=== PATIENT | female | born 1960 | race Caucasian/White ===

== ENCOUNTER 2020-05-05 20:25 | Emergency (ER) | payer OTHER ==
[~2020-05-05] VITALS: Ht 162.6 cm; Wt 62.6 kg
[2020-05-05 20:36] VITALS: BP 152/82
--- NOTE | 2020-05-05 20:37 | NUR ---
ED Nurse Note: pt walked into the Ed due to lower back pain 02/26. 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
--- NOTE | 2020-05-05 20:58 | Emergency Room Report ---
History of Present Illness General Chief Complaint: Lower Back Pain or Injury Source: Patient Present Illness HPI Disclaimer: Please note that this report is being documented using DRAGON technology. This can lead to erroneous entry secondary to incorrect interpretation by the dictating instrument. HPI: 59-year-old female no reported past medical history presents for low back pain. Patient states she has low back pain for the past couple of weeks after lifting a heavy patient off the floor. Pain is nonradiating. Worse with movement. No urinary complaints no abdominal pain. Allergies: Coded Allergies: No Known Allergies (Unverified , 05/05/20) COVID-19 Screening Contact w/high risk pt: No Experienced COVID-19 symptoms?: No COVID-19 Testing performed VARNISH MELTER: No Patient History Reviewed Nursing Documentation: PMH: Agreed; PSxH: Agreed Nursing Documentation-PMH Past Medical History: No Stated History Review of Systems All Other Systems: negative except mentioned in HPI Physical Exam Vital Signs Date Time Temp Pulse Resp B/P (MAP) Pulse Ox O2 Delivery O2 Flow Rate FiO2 05/05/20 20:35 98.2 94 20 166/89 (114) 99 Room Air Sp02 EP Interpretation: reviewed, normal General Appearance: well appearing, no apparent distress Head: normocephalic, atraumatic Eyes: bilateral eye PERRL, bilateral eye EOMI ENT: hearing grossly normal, moist mucus membranes Neck: full range of motion, supple Respiratory: lungs clear, normal breath sounds, no rhonchi, no respiratory distress, no retraction, no wheezing Cardiovascular #1: normal peripheral pulses, regular rate, rhythm, no murmur Gastrointestinal: non tender, soft, non-distended, no guarding Musculoskeletal: other - Low back tenderness noted no step-offs or deformity, lower extremity strength intact. Neurologic: alert, oriented x3, no focal defects Skin: normal color, warm/dry Medical Decision Making Diagnostic Impression: Primary Impression: Low back pain ER Course MDM: Differential diagnosis included but not limited to low back strain, lumbar radiculopathy, less likely spinal cord compression. Clinical gffrld-s-afv of the lumbar spine ordered and showed osteopenia without evidence of acute fracture or dislocation. Patient feeling improved after Toradol. Will discharge home with anti-inflammatories and Flexeril as needed. Return precautions given. Other X-Ray Diagnostic Results Other X-Ray Diagnostic Results : X-Ray ordered: Lumbosacral spine # of Views/Limited Vs Complete: 3 View Indication: Pain Interpretation: no dislocation, no fractures Impression: No acute disease Electronically Signed by: Anthony Prceiado MD Last Vital Signs Date Time Temp Pulse Resp B/P (MAP) Pulse Ox O2 Delivery O2 Flow Rate FiO2 05/05/20 20:35 98.2 94 20 166/89 (114) 99 Room Air Status: improved Disposition: HOME, SELF-CARE Condition: Improved Scripts Cyclobenzaprine Hcl (CYCLOBENZAPRINE HCL) 5 Mg Tablet 5 MG ORAL QHS PRN for low back pain, #10 TAB Prov: Anthony Preciado M.D. 05/05/20 Meloxicam* (MELOXICAM*) 15 Mg Tablet 15 MG PO DAILY, #20 TAB Prov: Anthony Preciado M.D. 05/05/20 Anthony Preciado M.D. May 05, 2020 20:58
[2020-05-05] MEDS ORDERED: Ketorolac 30mg Inj IM ONE (21:00)
[2020-05-05] MEDS ORDERED: CYCLOBENZAPRINE5 MG ORAL (21:35)
[2020-05-05] MEDS ORDERED: MELOXICAM15 MG PO (21:35)
--- NOTE | 2020-05-05 21:42 | Diagnostic Imaging Report ---
EXAM: XR Lumbosacral Spine, 2 or 3 Views CLINICAL HISTORY: TRAUMA TECHNIQUE: Frontal and lateral views of the lumbar spine and sacrum. COMPARISON: None. FINDINGS: Vertebrae: Diffuse osteopenia. Mild multilevel endplate spondylosis. No acute fracture. Normal alignment. Sacrum/coccyx: Unremarkable as visualized. No acute fracture. Disc spaces: Normal disc height. Mild bilateral facet hypertrophy from L3-S1. Soft tissues: Unremarkable. IMPRESSION: Diffuse osteopenia along with mild degenerative disease. No acute fracture or spondylolisthesis.
[2020-05-05 21:47] VITALS: BP 146/78
--- NOTE | 2020-05-05 21:47 | NUR ---
ER DISCHARGE NOTE: Patient is cleared to be discharged per ERMD, pt is aox4, on room air, with stable vital signs. pt was given dc and prescription instructions, pt was able to verbalize understanding, pt id bandremoved without complications. pt is able to ambulate with steady gait. pt took all belongings.
== END 2020-05-05 21:47 | disposition home or self-care (01) ==
LOC: EMR 20:55
DX: M54.5 Low back pain (principal)
CPT/HCPCS: 72020; 96372; 99283; J1885